=== PATIENT | male | born 1980 | race Asian ===

== ENCOUNTER 2021-08-31 09:49 | Emergency (ER) | payer OTHER ==
[~2021-08-31] VITALS: Ht 180.3 cm; Wt 90.9 kg
[2021-08-31] MEDS ORDERED: METOCLOPRAMIDE INJ 10MG/2ML VIAL (J2765 PER 1) IV ONE (10:00)
[2021-08-31] MEDS ORDERED: NORT10CA2 PO (10:03)
--- NOTE | 2021-08-31 10:49 | REP ---
INDICATION: increasing RHODES frequency x month. COMPARISON: 01/02/2016. TECHNIQUE: CT brain performed in the axial plane. Coronal reconstruction images are performed. FINDINGS: The ventricles are normal in size and position.. There is no midline shift or mass effect. Lopez-white differentiation is well maintained. There is no acute intracranial hemorrhage or extra-axial fluid collection. Bone window examination is unremarkable. The visualized mastoid air cells and paranasal sinuses are clear. IMPRESSION: Negative noncontrast CT brain. <Electronically signed by Arnulfo Lopez > 08/31/21 [id number]
--- NOTE | 2021-08-31 13:08 | REPVR ---
PROCEDURE INFORMATION: Exam: MR Head Without Contrast Exam date and time: 08/31/2021 12:45 PM Age: 41 years old Clinical indication: Pain; Weakness, extremity; Bilateral; Headache not specified; Additional info: Increasing frequency of RHODES; Atypical RHODES TECHNIQUE: Imaging protocol: MR of the head without contrast. COMPARISON: CT Head without contrast 08/31/2021 10:06 AM FINDINGS: Brain: No abnormal areas of signal intensity are seen. Diffusion images are normal. No evidence of acute infarction. No evidence of acute intracranial hemorrhage. No extra-axial fluid collections. Ventricles and cerebrospinal fluid spaces are normal in size and configuration for the patient's age. There is no evidence of mass-effect or midline shift. Flow voids of the [place] and major cerebral vascular structures appear intact. Craniocervical junction appears unremarkable, with normal position of cerebellar tonsils and no evidence of Chiari I malformation. Cerebral ventricles: Normal. No ventriculomegaly. Bones/joints: Unremarkable as visualized. Paranasal sinuses: Mild mucosal thickening mainly in bilateral ethmoid air cells. No sinus air-fluid levels. Mastoid air cells: No significant mastoid effusion. Orbital cavity: Unremarkable. Soft tissues: Unremarkable as visualized. IMPRESSION: 1. Unremarkable brain MRI for age. No evidence of acute infarct, acute or chronic hemorrhage, or mass producing lesion. 2. Given the patient's clinical history and / or findings on MRI, MRA to assess the intracranial vascular system would be appropriate. Electronically signed by: Christina Calderon On 08/31/2021 13:07:36 PM
--- NOTE | 2021-08-31 13:10 | REPVR ---
PROCEDURE INFORMATION: Exam: MRA Head Without Contrast; Arteriography Exam date and time: 08/31/2021 12:46 PM Age: 41 years old Clinical indication: Pain; Headache and weakness; Patient HX: High blood pressure today; Additional info: Increasing frequency of RHODES; Atypical RHODES TECHNIQUE: Imaging protocol: Magnetic resonance angiography head without contrast. Exam focused on the arteries. COMPARISON: CT Head without contrast 08/31/2021 10:06 AM FINDINGS: ANTERIOR CIRCULATION: Right internal carotid artery: Intracranial segment is patent with no significant stenosis. No aneurysm. Right middle cerebral artery: No occlusion or significant stenosis. No aneurysm. Right anterior cerebral artery: No occlusion or significant stenosis. No aneurysm. Left internal carotid artery: Intracranial segment is patent with no significant stenosis. No aneurysm. Left middle cerebral artery: No occlusion or significant stenosis. No aneurysm. Left anterior cerebral artery: No occlusion or significant stenosis. No aneurysm. POSTERIOR CIRCULATION: Right vertebral artery: No occlusion or significant stenosis. No aneurysm. Left vertebral artery: No occlusion or significant stenosis. No aneurysm. Basilar artery: No occlusion or significant stenosis. No aneurysm. Patent superior cerebellar arteries. Right posterior cerebral artery: No occlusion or significant stenosis. No aneurysm. Left posterior cerebral artery: No occlusion or significant stenosis. No aneurysm. IMPRESSION: Unremarkable MRA. No vascular stenosis or occlusion. Electronically signed by: Christina Calderon On 08/31/2021 13:10:02 PM
[2021-08-31 13:48] VITALS: BP 155/101
--- NOTE | 2021-08-31 18:15 | ECGEPIP ---
[facility] - ED Test Date: 2021-08-31 Pat Name: CAL ALCALA Department: Room: - Gender: Male [employer]: : 1980 Requested By: Trae Paz Order Number: [id number] Reading MD: Trae Paz Measurements Intervals [place] Rate: 90 P: 69 UT: 176 QRS: 80 QRSD: 84 T: 55 QT: 366 QTc: 447 Interpretive Statements Normal sinus rhythm Nonspecific ST T wave changes cw 01/06/[address] T wave changes Electronically Signed on 08-31-2021 18:15:18 EST by Trae Paz
== END 2021-08-31 13:50 | disposition home or self-care (01) ==
LOC: M ED 09:49 → EDBD 09:49 → M ED 13:50
DX: I10 Essential (primary) hypertension (principal); R51.9 Headache, unspecified; F32.9 Major depressive disorder, single episode, unspecified
CPT/HCPCS: 70450; 70544; 70551; 80047; 93005; 93041; 96374; 99285; J2765